=== PATIENT | male | born 1970 | race Caucasian/White ===

== ENCOUNTER 2021-09-20 02:06 | Observation (INO) | payer SELFPAY ==
[2021-09-20 02:31] VITALS: BMI 21.1
[2021-09-20] MEDS ORDERED: LACTATED RINGERS SOLUTION 1000 ML INFUS.BAG IV ONE (03:09)
[2021-09-20] MEDS ORDERED: THIAMINE HCL 200 MG/2 ML VIAL IVPB ONE (03:09)
[2021-09-20] MEDS ORDERED: ACETAMINOPHEN 1000 MG/100 ML VIAL IVPB ONE (03:42)
[2021-09-20] MEDS ORDERED: ACETAMINOPHEN INJECTION 100 ML IVPB ONE (03:48)
[2021-09-20 03:49] LABS: EOS % 1.5 % (0-4.5); HEMATOCRIT 29.2 % (35.4-49); HEMOGLOBIN 9.9 GM/dL (11.7-16.9); LYMPH % 34.7 % (8-40); MCH 33.6 pg (25.7-33.7); MCHC 33.9 g/dl (32.0-35.9); MEAN CELL VOLUME 99.1 fl (80-96); MEAN PLT VOLUME 6.6 fl (7.5-11.1); MONO % 15.5 % (3.8-10.2); NEUT % 47.3 % (42.8-82.8); PLATELET COUNT 252 10^3/uL (134-434); RBC 2.95 M/mm3 (4.00-5.60); RDW 16.7 % (11.9-15.9); WHITE BLOOD COUNT 4.9 K/mm3 (4.0-10.0)
[2021-09-20 03:56] LABS: INR 1.01 (0.83-1.09); PROTHROMBIN TIME (PATIENT) 11.8 SEC (9.7-13.0)
[2021-09-20] MEDS ORDERED: THIAMINE HCL 200 MG/2 ML VIAL ONE (03:57)
[2021-09-20 03:58] LABS: ACTIVATED PTT 29.8 SECONDS (25.2-36.5)
[2021-09-20 04:07] LABS: CHLORIDE 101 mmol/L (98-107); SODIUM 134 mmol/L (136-145)
[2021-09-20 04:09] LABS: CALCIUM 8.1 mg/dL (8.5-10.1)
[2021-09-20 04:10] LABS: ALBUMIN 3.1 g/dl (3.4-5.0); ANION GAP 10 MMOL/L (8-16); BLOOD UREA NITROGEN 11.8 mg/dL (7-18); CO2 23 mmol/L (21-32); GLUCOSE,RANDOM 72 mg/dL (74-106)
[2021-09-20 04:11] LABS: MAGNESIUM 1.8 mg/dL (1.8-2.4)
[2021-09-20 04:13] LABS: CREATININE 0.8 mg/dL (0.55-1.3); SGOT/AST 38 U/L (15-37); SGPT/ALT 49 U/L (13-61)
[2021-09-20 04:14] LABS: BILIRUBIN,TOTAL 0.6 mg/dL (0.2-1); TOT PROT 7.1 g/dl (6.4-8.2)
[2021-09-20 04:16] LABS: ALK PHOS 444 U/L (45-117)
[2021-09-20 04:40] LABS: URINE APPEARANCE CLEAR; URINE BILIRUBIN NEGATIVE (NEGATIVE); URINE COLOR YELLOW; URINE GLUCOSE (UA) NEGATIVE (NEGATIVE); URINE KETONE NEGATIVE (NEGATIVE); URINE LEUK ESTERASE NEGATIVE (NEGATIVE); URINE NITRITE NEGATIVE (NEGATIVE); URINE PROTEIN NEGATIVE (NEGATIVE)
[2021-09-20 04:49] LABS: OPIATES, URI NEGATIVE (NEGATIVE)
[2021-09-20] MEDS ORDERED: LORazepam 2 MG/ML SDV VIAL IVPUSH ONE ×2 (05:39→06:15)
[2021-09-20] MEDS ORDERED: LORazepam 2 MG/ML SDV VIAL ONE ×2 (05:41→05:52)
[2021-09-20] MEDS ORDERED: morphine SULFATE IMMEDIATE RELEASE 30 MG TAB PO ONE (05:50)
[2021-09-20] MEDS ORDERED: morphine SULFATE IMMEDIATE RELEASE 30 MG TAB ONE (05:52)
[2021-09-20 05:54] LABS: COCAINE, UR POSITIVE (NEGATIVE); METHADONE, UR POSITIVE (NEGATIVE); PHENCYCLIDINE,URINE POSITIVE (NEGATIVE); URINE AMPHETAMINES NEGATIVE (NEGATIVE); URINE BARBITURATES NEGATIVE (NEGATIVE); URINE BENZODIAZEPINES POSITIVE (NEGATIVE)
[2021-09-20] MEDS ORDERED: methaDONE HCL 10 MG TABLET (FOR DETOX USE ONLY) PO ONE (06:00)
[2021-09-20] MEDS ORDERED: methaDONE HCL 10 MG TABLET ONE (06:13)
[2021-09-20] MEDS ORDERED: methaDONE HCL 40 MG DISPERSABLE TABLET ONE (06:14)
[2021-09-20] MEDS ORDERED: ACETAMINOPHEN 1000 MG/100 ML VIAL IVPB PRN (07:10)
[2021-09-20] MEDS ORDERED: LACTATED RINGERS SOLUTION 1,000 ML IV SCH (07:15)
[2021-09-20 07:57] LABS: IRON SERUM 86 ug/dL (50-175); TOTAL IRON BINDING CAPACITY 368 ug/dL (250-450)
[2021-09-20] MEDS ORDERED: chlordiazePOXIDE HCL 25 MG CAPSULE PO PRN (08:42)
[2021-09-20] MEDS ORDERED: FOLIC ACID INJECTION - 1 MG, THIAMINE HCL 100 MG, MULTIVIT INJECTION ADULT 10 ML in SOD... IVPB ONE (09:00)
[2021-09-20] MEDS ORDERED: SODIUM CHLORIDE IVPB ONE (09:13)
[2021-09-20] MEDS ORDERED: MULTIVIT IVPB ONE (09:13)
[2021-09-20] MEDS ORDERED: FOLIC ACID IVPB ONE (09:13)
[2021-09-20] MEDS ORDERED: MULTIVIT INJ. ADULT COMBO WITH VIT K 1 COMBO 10 ML VIAL IV SCH (10:00)
[2021-09-20 10:48] VITALS: TEMP 98.1
[2021-09-20] MEDS ORDERED: chlordiazePOXIDE HCL 25 MG CAPSULE PO SCH (11:00)
[2021-09-20] MEDS ORDERED: LORazepam 2 MG/ML SDV VIAL IVPUSH PRN (11:08)
[2021-09-20 13:48] VITALS: BP 145/94; PULSE 78
[2021-09-21] MEDS ORDERED: methaDONE HCL 10 MG TABLET PO SCH (06:00)
[2021-09-22] MEDS ORDERED: chlordiazePOXIDE HCL 25 MG CAPSULE PO SCH (05:00)
[2021-09-23] MEDS ORDERED: chlordiazePOXIDE HCL 10 MG CAPSULE PO PRN
[2021-09-23] MEDS ORDERED: chlordiazePOXIDE HCL 10 MG CAPSULE PO SCH (05:00)
[2021-09-24] MEDS ORDERED: chlordiazePOXIDE HCL 10 MG CAPSULE PO SCH (05:00)
[2021-09-25] MEDS ORDERED: chlordiazePOXIDE HCL 10 MG CAPSULE PO ONE (05:00)
== END 2021-09-20 13:41 | disposition short-term general hospital (02) ==
LOC: JER 02:06 → UNDOADMOB 03:14 → JERBED 03:14 → INTOOBSV 03:14 → JERBED 11:59
PROVIDERS: ADMIT Internal Medicine; ATTEND Internal Medicine
PROC: 3E033NZ Introduction of Analgesics, Hypnotics, Sedatives into Peripheral Vein, Percutaneous Approach (ICD-10-PCS; principal; 2021-09-20)
PROC: 3E0337Z Introduction of Electrolytic and Water Balance Substance into Peripheral Vein, Percutaneous Approach (ICD-10-PCS; 2021-09-20)
PROC: 3E033GC Introduction of Other Therapeutic Substance into Peripheral Vein, Percutaneous Approach (ICD-10-PCS; 2021-09-20)
DX: S52.202A Unspecified fracture of shaft of left ulna, initial encounter for closed fracture (principal); S52.502A Unspecified fracture of the lower end of left radius, initial encounter for closed fracture; Y92.239 Unspecified place in hospital as the place of occurrence of the external cause; W18.39XA Other fall on same level, initial encounter; Y93.89 Activity, other specified; R55 Syncope and collapse; F10.99 Alcohol use, unspecified with unspecified alcohol-induced disorder; F11.90 Opioid use, unspecified, uncomplicated; F19.10 Other psychoactive substance abuse, uncomplicated; I10 Essential (primary) hypertension; Z91.81 History of falling; F17.210 Nicotine dependence, cigarettes, uncomplicated
CPT/HCPCS: 36415; 70450-TC; 70486-TC; 72125-TC; 73090-TC-LT-FY; 73110-TC-LT-FY; 73130-TC-LT-FY; 80053; 80307; 81003; 82550; 82553; 82607; 82728; 82746; 82962; 83540; 83550; 83605; 83735; 84484; 85025; 85610; 85730; 86850; 86900; 86901; 93005; 93010; 96361; 96374; 96375; 96376; 99285-25; C9803; G0378; J0131; U0003; U0005

== ENCOUNTER 2021-09-20 13:10 | Inpatient (IN) | payer OTHER ==
[2021-09-20 14:36] VITALS: BMI 21.2
[2021-09-20] MEDS ORDERED: MENTHOL/PHENOL 1 EACH UD MM PRN (14:47)
[2021-09-20] MEDS ORDERED: MAGNESIUM CITRATE 300 ML BOTTLE PO PRN (14:47)
[2021-09-20] MEDS ORDERED: ACETAMINOPHEN 325 MG TABLET (FP) PO PRN (14:47)
[2021-09-20] MEDS ORDERED: MAGNESIUM HYDROX 2400MG/30ML ORAL SUSPENSION 30 ML CUP PO PRN (14:47)
[2021-09-20] MEDS ORDERED: BISMUTH SUBSALICYLATE 262 MG/15 ML BTL PO PRN (14:47)
[2021-09-20] MEDS ORDERED: ONDANSETRON *ODT* 4 MG TABLET SL PRN (14:47)
[2021-09-20] MEDS: hydrOXYzine PAMOATE 25 MG CAPSULE (FP) PO SCH ×2 (17:27→21:00)
[2021-09-20] MEDS: diazePAM 5 MG TABLET PO SCH ×2 (17:27→22:58)
[2021-09-20] MEDS: PRENATAL VITAMINS W/ FOLIC ACID TABLET (FP) PO SCH (17:28)
[2021-09-20] MEDS: NICOTINE 14 MG/24 HOURS TOPICAL PATCH TD SCH (17:33)
[2021-09-20] MEDS: NICOTINE 10 MG CARTRIDGE (INHALER) IH PRN (18:39)
[2021-09-20] MEDS: METHOCARBAMOL 500 MG TABLET PO PRN (20:51)
[2021-09-20] MEDS: IBUPROFEN 400 MG TABLET (FP) PO PRN (20:51)
[2021-09-20] MEDS: diazePAM 5 MG TABLET PO PRN (20:53)
[2021-09-20] MEDS: THIAMINE HCL 100 MG TABLET (FP) PO SCH (21:00)
[2021-09-20] MEDS ORDERED: MELATONIN 5 MG TABLETS PO SCH (22:00)
[2021-09-21] MEDS: diazePAM 5 MG TABLET PO SCH ×4 (05:38→22:02)
[2021-09-21] MEDS: hydrOXYzine PAMOATE 25 MG CAPSULE (FP) PO SCH ×5 (05:38→22:05)
[2021-09-21] MEDS: NICOTINE 10 MG CARTRIDGE (INHALER) IH PRN ×3 (05:39→17:54)
[2021-09-21] MEDS: ACETAMINOPHEN 325 MG TABLET (FP) PO PRN (05:39)
[2021-09-21] MEDS ORDERED: methaDONE HCL 40 MG DISPERSABLE TABLET PO SCH (06:00)
[2021-09-21] MEDS ORDERED: GABAPENTIN 100 MG CAPSULE PO ONE (10:00)
[2021-09-21] MEDS ORDERED: methaDONE HCL 10 MG TABLET PO ONE (10:00)
[2021-09-21 10:15] LABS: HEMATOCRIT 29.6 % (35.4-49); HEMOGLOBIN 10.2 GM/dL (11.7-16.9); MCH 34.4 pg (25.7-33.7); MCHC 34.6 g/dl (32.0-35.9); MEAN CELL VOLUME 99.4 fl (80-96); MEAN PLT VOLUME 7.3 fl (7.5-11.1); PLATELET COUNT 250 10^3/uL (134-434); RBC 2.97 M/mm3 (4.00-5.60); RDW 16.4 % (11.9-15.9); WHITE BLOOD COUNT 3.1 K/mm3 (4.0-10.0)
[2021-09-21] MEDS: PRENATAL VITAMINS W/ FOLIC ACID TABLET (FP) PO SCH (10:16)
[2021-09-21] MEDS: IBUPROFEN 400 MG TABLET (FP) PO PRN ×2 (10:18→17:48)
[2021-09-21 10:19] LABS: ALBUMIN 2.6 g/dl (3.4-5.0); BLOOD UREA NITROGEN 7.3 mg/dL (7-18); CALCIUM 8.4 mg/dL (8.5-10.1)
[2021-09-21] MEDS ORDERED: methaDONE HCL 10 MG TABLET ONE (10:19)
[2021-09-21] MEDS ORDERED: methaDONE HCL 40 MG DISPERSABLE TABLET ONE (10:19)
[2021-09-21] MEDS: NICOTINE 14 MG/24 HOURS TOPICAL PATCH TD SCH (10:20)
[2021-09-21 10:23] LABS: BILIRUBIN,TOTAL 0.4 mg/dL (0.2-1); CREATININE 0.6 mg/dL (0.55-1.3); TOT PROT 6.4 g/dl (6.4-8.2)
[2021-09-21] MEDS: GABAPENTIN 100 MG CAPSULE PO SCH ×2 (13:21→22:02)
[2021-09-21] MEDS: METHOCARBAMOL 500 MG TABLET PO PRN (17:49)
[2021-09-21] MEDS: MAG HYDROX/AL HYDROX/SIMETH 30 ML UNIT-DOSE CUP PO PRN (18:27)
[2021-09-21] MEDS: THIAMINE HCL 100 MG TABLET (FP) PO SCH (22:02)
[2021-09-21] MEDS: SUVOREXANT 10 MG TABLET PO PRN (22:04)
[2021-09-22] MEDS: IBUPROFEN 400 MG TABLET (FP) PO PRN ×2 (01:36→10:14)
[2021-09-22] MEDS: METHOCARBAMOL 500 MG TABLET PO PRN ×3 (01:36→17:27)
[2021-09-22] MEDS: NICOTINE 10 MG CARTRIDGE (INHALER) IH PRN ×3 (01:37→20:00)
[2021-09-22] MEDS: diazePAM 5 MG TABLET PO PRN ×3 (01:43→17:27)
[2021-09-22] MEDS ORDERED: methaDONE HCL 40 MG DISPERSABLE TABLET ONE (04:06)
[2021-09-22] MEDS ORDERED: methaDONE HCL 10 MG TABLET ONE (04:06)
[2021-09-22] MEDS: hydrOXYzine PAMOATE 25 MG CAPSULE (FP) PO SCH ×5 (05:35→22:16)
[2021-09-22] MEDS: diazePAM 5 MG TABLET PO SCH ×3 (05:35→22:14)
[2021-09-22] MEDS ORDERED: methaDONE HCL 40 MG DISPERSABLE TABLET PO SCH (06:00)
[2021-09-22] MEDS: PRENATAL VITAMINS W/ FOLIC ACID TABLET (FP) PO SCH (10:11)
[2021-09-22] MEDS: GABAPENTIN 100 MG CAPSULE PO SCH ×3 (10:14→22:14)
[2021-09-22] MEDS: NICOTINE 14 MG/24 HOURS TOPICAL PATCH TD SCH (10:53)
[2021-09-22] MEDS: FAMOTIDINE 20 MG TABLET PO SCH (11:08)
[2021-09-22] MEDS: amLODIPine BESYLATE 5 MG TABLET (FP) PO SCH (11:08)
[2021-09-22 13:59] LABS: IRON SERUM 48 ug/dL (50-175)
[2021-09-22 14:00] LABS: TOTAL IRON BINDING CAPACITY 304 ug/dL (250-450)
[2021-09-22] MEDS: ACETAMINOPHEN 325 MG TABLET (FP) PO PRN (17:27)
[2021-09-22] MEDS: THIAMINE HCL 100 MG TABLET (FP) PO SCH (22:14)
[2021-09-22] MEDS: SUVOREXANT 10 MG TABLET PO PRN (22:15)
[2021-09-22] MEDS: MAG HYDROX/AL HYDROX/SIMETH 30 ML UNIT-DOSE CUP PO PRN (23:33)
[2021-09-23] MEDS ORDERED: methaDONE HCL 40 MG DISPERSABLE TABLET ONE (04:06)
[2021-09-23] MEDS ORDERED: methaDONE HCL 10 MG TABLET ONE (04:06)
[2021-09-23] MEDS: ACETAMINOPHEN 325 MG TABLET (FP) PO PRN ×2 (05:22→14:14)
[2021-09-23] MEDS: hydrOXYzine PAMOATE 25 MG CAPSULE (FP) PO SCH ×5 (05:23→22:07)
[2021-09-23] MEDS: diazePAM 5 MG TABLET PO SCH ×2 (05:23→17:34)
[2021-09-23] MEDS: diazePAM 5 MG TABLET PO PRN (09:07)
[2021-09-23] MEDS ORDERED: SUVOREXANT 20 MG TABLET PO PRN (09:29)
[2021-09-23] MEDS: NICOTINE 10 MG CARTRIDGE (INHALER) IH PRN ×4 (10:12→23:38)
[2021-09-23] MEDS: PRENATAL VITAMINS W/ FOLIC ACID TABLET (FP) PO SCH (10:12)
[2021-09-23] MEDS: FAMOTIDINE 20 MG TABLET PO SCH (10:13)
[2021-09-23] MEDS: amLODIPine BESYLATE 5 MG TABLET (FP) PO SCH (10:13)
[2021-09-23] MEDS: NICOTINE 14 MG/24 HOURS TOPICAL PATCH TD SCH (10:13)
[2021-09-23] MEDS: METHOCARBAMOL 500 MG TABLET PO PRN ×2 (10:13→17:34)
[2021-09-23] MEDS ORDERED: JANSSEN COVID-19 VAC,AD26/PF 0.5 ML IM ONE (14:00)
[2021-09-23] MEDS: MAG HYDROX/AL HYDROX/SIMETH 30 ML UNIT-DOSE CUP PO PRN (16:40)
[2021-09-23] MEDS: THIAMINE HCL 100 MG TABLET (FP) PO SCH (22:07)
[2021-09-24] MEDS: ACETAMINOPHEN 325 MG TABLET (FP) PO PRN ×2 (02:09→08:05)
[2021-09-24] MEDS: METHOCARBAMOL 500 MG TABLET PO PRN ×2 (02:09→10:51)
[2021-09-24] MEDS ORDERED: methaDONE HCL 10 MG TABLET ONE (04:37)
[2021-09-24] MEDS ORDERED: methaDONE HCL 40 MG DISPERSABLE TABLET ONE (04:37)
[2021-09-24] MEDS: hydrOXYzine PAMOATE 25 MG CAPSULE (FP) PO SCH ×2 (05:25→10:52)
[2021-09-24] MEDS ORDERED: diazePAM 5 MG TABLET PO ONE (06:00)
[2021-09-24 06:22] VITALS: TEMP 97.5
[2021-09-24] MEDS: NICOTINE 10 MG CARTRIDGE (INHALER) IH PRN (08:05)
[2021-09-24 10:11] VITALS: BP 119/70; PULSE 76
[2021-09-24] MEDS: amLODIPine BESYLATE 5 MG TABLET (FP) PO SCH (10:51)
[2021-09-24] MEDS: FAMOTIDINE 20 MG TABLET PO SCH (10:51)
[2021-09-24] MEDS: PRENATAL VITAMINS W/ FOLIC ACID TABLET (FP) PO SCH (10:51)
[2021-09-24] MEDS: NICOTINE 14 MG/24 HOURS TOPICAL PATCH TD SCH (10:51)
== END 2021-09-24 11:12 | disposition home or self-care (01) | DRG 773 ==
LOC: YASAS 13:10 → Y6N 14:53
PROVIDERS: ADMIT Allergy & Immunology; ATTEND Allergy & Immunology
PROC: HZ2ZZZZ Detoxification Services for Substance Abuse Treatment (ICD-10-PCS; principal; 2021-09-20)
DX: F10.230 Alcohol dependence with withdrawal, uncomplicated (principal); F13.230 Sedative, hypnotic or anxiolytic dependence with withdrawal, uncomplicated; F11.20 Opioid dependence, uncomplicated; F14.20 Cocaine dependence, uncomplicated; F16.20 Hallucinogen dependence, uncomplicated; F17.210 Nicotine dependence, cigarettes, uncomplicated; F19.282 Other psychoactive substance dependence with psychoactive substance-induced sleep disorder; F19.280 Other psychoactive substance dependence with psychoactive substance-induced anxiety disorder; F19.24 Other psychoactive substance dependence with psychoactive substance-induced mood disorder; F90.9 Attention-deficit hyperactivity disorder, unspecified type; D53.9 Nutritional anemia, unspecified; I10 Essential (primary) hypertension; S52.502D Unspecified fracture of the lower end of left radius, subsequent encounter for closed fracture with routine healing; S52.692D Other fracture of lower end of left ulna, subsequent encounter for closed fracture with routine healing; W19.XXXD Unspecified fall, subsequent encounter; Z99.89 Dependence on other enabling machines and devices
CPT/HCPCS: 0031A; 36415; 80053; 82607; 83540; 83550; 85027; 86780; 91303; C9803; U0003; U0005